=== PATIENT | female | born 1950 | race Caucasian/White ===

== ENCOUNTER 2021-07-14 04:52 | Emergency (ER) | payer MEDICARE ==
[~2021-07-14] VITALS: Ht 162.6 cm; Wt 90.7 kg
[~2021-07-14 04:52] MED LIST: ASPI325B; ATOR20 PO; ATOR40TA; Aspir 8181 MG PO; CEFD300 PO; CIPR500; CITA20 PO; CLOP75; CYCL10 PO; LISI5; METO50ER; METO50ER PO; PROACE100 PO; TAMS.4ER PO; ZESTRIL40 M1 PO
[2021-07-14 05:24] LABS: Source, Urine Clean Catch
[2021-07-14 05:36] LABS: BASOPHILS ABSOLUTE AUTO 0.05 K/mm3 (0.00-0.23); BASOPHILS PERCENT AUTO 1 % (0-2); EOSINOPHILS ABSOLUTE AUTO 0.17 K/mm3 (0.00-0.68); EOSINOPHILS PERCENT AUTO 2 % (0-6); Hematocrit 38.4 % (33.0-51.0); Hemoglobin 13.3 g/dL (11.5-16.0); IMMATURE GRAN ABSOLUTE AUTO 0.04 K/mm3 (0.00-0.10); IMMATURE GRAN PERCENT AUTO 0 % (0-1); LYMPHOCYTES ABSOLUTE AUTO 1.47 K/mm3 (0.84-5.20); LYMPHOCYTES PERCENT AUTO 14 % (21-46); MONOCYTES ABSOLUTE AUTO 0.53 K/mm3 (0.16-1.47); MONOCYTES PERCENT AUTO 5 % (4-13); Mean Corpuscular HGB 33.3 pg (26.0-34.0); Mean Corpuscular HGB Conc 34.6 g/dL (31.5-36.5); Mean Corpuscular Volume 96 fL (80-100); Mean Platelet Volume 9.4 fL (9.1-12.4); NEUTROPHILS ABSOLUTE AUTO 8.65 K/mm3 (1.96-9.15); NEUTROPHILS PERCENT AUTO 79 % (41-73); Platelet Count 237 K/mm3 (150-400); RDW Coefficient Variation 11.8 % (11.7-14.2); RDW Standard Deviation 41.8 fL (35.1-46.3); White Blood Cell Count 10.91 K/mm3 (4.00-11.30)
[2021-07-14 05:40] LABS: Bilirubin, Urine Neg (Neg); Blood, Urine 5+ (Neg); Glucose Qualitative, Urine Neg (Neg); Ketones, Urine 1+ (Neg); Leukocyte Esterase, Urine Neg (Neg); Nitrite, Urine Neg (Neg); Protein, Urine 1+ (Neg); Specific Gravity, Urine 1.015 (1.003-1.022); Urobilinogen, Urine NORM (Normal)
[2021-07-14 05:53] LABS: Appearance, Urine Hazy (Clear); Color, Urine Yellow (P-Yellow)
[2021-07-14 05:55] LABS: Bacteria Rare /hpf; Red Blood Cells, Urine TNTC /hpf (0-2); Squamous Epithelial Cells Rare /hpf (Few); White Blood Cells, Urine 0-2 /hpf (0-5)
[2021-07-14 06:32] LABS: Alanine Aminotransfer (ALT/SGP 30 U/L (12-78); Albumin, Blood 3.2 g/dL (3.4-5.0); Alk Phos 87 U/L (50-136); Anion Gap 9 mmol/L (6-16); Aspartate Aminotrans (AST/SGOT 18 U/L (12-37); Bilirubin, Total 0.4 mg/dL (0.1-1.0); Blood Urea Nitrogen 21 mg/dL (8-24); Bun/Creatinine Ratio 24.2 (12.0-20.0); CO2, Blood 26 mmol/L (21-32); Calcium, Blood 9.2 mg/dL (8.5-10.1); Chloride, Blood 108 mmol/L (98-108); Creatinine, Blood 0.87 mg/dL (0.40-1.00); Globulin, Blood 3.2 g/dL (2.2-4.0); Glomerular Filtration Rate >60 (60-); Glucose, Blood 159 mg/dL (70-99); Potassium, Blood 3.8 mmol/L (3.5-5.5); Sodium, Blood 143 mmol/L (136-145); Total Protein, Blood 6.4 g/dL (6.4-8.2)
[2021-07-14] MEDS ORDERED: ONDA4ODT MM (07:59)
[2021-07-14] MEDS ORDERED: Roxicodone5 MG PO (08:11)
== END 2021-07-14 08:30 | disposition home or self-care (01) ==
LOC: ER 04:52
PROVIDERS: Student in an Organized Health Care Education/Training Program
DX: N13.2 Hydronephrosis with renal and ureteral calculous obstruction (principal); R74.8 Abnormal levels of other serum enzymes; Z88.0 Allergy status to penicillin; Z88.5 Allergy status to narcotic agent; Z79.899 Other long term (current) drug therapy; Z79.82 Long term (current) use of aspirin
CPT/HCPCS: 36415; 76770; 80053; 81001; 83690; 85025; 96374; 96375; 99284-25; A9270; J1885; J2405

== ENCOUNTER → 2022-09-23 | Outpatient (CLI) | payer MEDICARE ==
[~2022-09-23] MED LIST changes: +ONDA4ODT MM; +Roxicodone5 MG PO
== END | disposition home or self-care (01) ==
LOC: LAB 08:21 → LAB SHORT 08:21
DX: D48.5 Neoplasm of uncertain behavior of skin (principal)
CPT/HCPCS: 88304

== ENCOUNTER 2022-11-03 23:24 | Inpatient (IN) | payer MEDICARE ==
[~2022-11-03] VITALS: Ht 165.1 cm; Wt 87.7 kg
[2022-11-03 23:59] LABS: BASOPHILS ABSOLUTE AUTO 0.11 K/mm3 (0.00-0.23); BASOPHILS PERCENT AUTO 1 % (0-2); EOSINOPHILS ABSOLUTE AUTO 0.13 K/mm3 (0.00-0.68); EOSINOPHILS PERCENT AUTO 1 % (0-6); Hematocrit 43.3 % (33.0-51.0); Hemoglobin 14.9 g/dL (11.5-16.0); IMMATURE GRAN ABSOLUTE AUTO 0.12 K/mm3 (0.00-0.10); IMMATURE GRAN PERCENT AUTO 1 % (0-1); LYMPHOCYTES ABSOLUTE AUTO 2.24 K/mm3 (0.84-5.20); LYMPHOCYTES PERCENT AUTO 10 % (21-46); MONOCYTES ABSOLUTE AUTO 1.33 K/mm3 (0.16-1.47); MONOCYTES PERCENT AUTO 6 % (4-13); Mean Corpuscular HGB 33.1 pg (26.0-34.0); Mean Corpuscular HGB Conc 34.4 g/dL (31.5-36.5); Mean Corpuscular Volume 96 fL (80-100); Mean Platelet Volume 9.2 fL (9.1-12.4); NEUTROPHILS ABSOLUTE AUTO 19.32 K/mm3 (1.96-9.15); NEUTROPHILS PERCENT AUTO 83 % (41-73); Platelet Count 227 K/mm3 (150-400); RDW Coefficient Variation 12.3 % (11.7-14.2); RDW Standard Deviation 43.8 fL (35.1-46.3); White Blood Cell Count 23.25 K/mm3 (4.00-11.30)
[2022-11-04 00:34] LABS: Alanine Aminotransfer (ALT/SGP 30 U/L (12-78); Albumin, Blood 3.5 g/dL (3.4-5.0); Albumin/Globulin Ratio 0.9 (0.8-1.8); Alk Phos 78 U/L (50-136); Anion Gap 7 mmol/L (6-16); Aspartate Aminotrans (AST/SGOT 24 U/L (12-37); Bilirubin, Total 0.5 mg/dL (0.1-1.0); Blood Urea Nitrogen 28 mg/dL (8-24); Bun/Creatinine Ratio 31.9 (12.0-20.0); CO2, Blood 28 mmol/L (21-32); Calcium, Blood 9.2 mg/dL (8.5-10.1); Chloride, Blood 106 mmol/L (98-108); Creatinine, Blood 0.88 mg/dL (0.40-1.00); Globulin, Blood 3.8 g/dL (2.2-4.0); Glomerular Filtration Rate 70 (60-); Glucose, Blood 279 mg/dL (70-99); Sodium, Blood 141 mmol/L (136-145); Total Protein, Blood 7.3 g/dL (6.4-8.2)
[2022-11-04 00:56] LABS: Influenza A, PCR NEGATIVE (NEGATIVE); Influenza B, PCR NEGATIVE (NEGATIVE); Resp Syncytial Virus, PCR NEGATIVE (NEGATIVE); SARS-Cov-2 (COVID-19) PCR, MMC NEGATIVE (NEGATIVE)
[2022-11-04 03:09] LABS: Lactate Dehydrogenase (Ld),Bld 320 U/L (100-240)
[2022-11-04 05:17] LABS: BASOPHILS ABSOLUTE AUTO 0.04 K/mm3 (0.00-0.23); BASOPHILS PERCENT AUTO 0 % (0-2); EOSINOPHILS ABSOLUTE AUTO 0.01 K/mm3 (0.00-0.68); EOSINOPHILS PERCENT AUTO 0 % (0-6); Hematocrit 45.1 % (33.0-51.0); Hemoglobin 15.3 g/dL (11.5-16.0); IMMATURE GRAN ABSOLUTE AUTO 0.05 K/mm3 (0.00-0.10); IMMATURE GRAN PERCENT AUTO 0 % (0-1); LYMPHOCYTES ABSOLUTE AUTO 0.64 K/mm3 (0.84-5.20); LYMPHOCYTES PERCENT AUTO 4 % (21-46); MONOCYTES ABSOLUTE AUTO 0.67 K/mm3 (0.16-1.47); MONOCYTES PERCENT AUTO 4 % (4-13); Mean Corpuscular HGB 32.9 pg (26.0-34.0); Mean Corpuscular HGB Conc 33.9 g/dL (31.5-36.5); Mean Corpuscular Volume 97 fL (80-100); Mean Platelet Volume 8.8 fL (9.1-12.4); NEUTROPHILS ABSOLUTE AUTO 15.62 K/mm3 (1.96-9.15); NEUTROPHILS PERCENT AUTO 92 % (41-73); Platelet Count 180 K/mm3 (150-400); RDW Coefficient Variation 12.4 % (11.7-14.2); RDW Standard Deviation 44.2 fL (35.1-46.3); Red Blood Cell Count 4.65 M/mm3 (3.80-5.20); White Blood Cell Count 17.03 K/mm3 (4.00-11.30)
[2022-11-04 05:40] LABS: Albumin, Blood 3.2 g/dL (3.4-5.0); Bilirubin, Total 0.5 mg/dL (0.1-1.0); Bun/Creatinine Ratio 30.2 (12.0-20.0); Calcium, Blood 8.6 mg/dL (8.5-10.1); Creatinine, Blood 0.83 mg/dL (0.40-1.00); Globulin, Blood 3.3 g/dL (2.2-4.0); Potassium, Blood 2.9 mmol/L (3.5-5.5); Total Protein, Blood 6.5 g/dL (6.4-8.2)
[2022-11-04 05:51] LABS: Cholesterol 147 mg/dL (50-200); Triglycerides 80 mg/dL (30-160)
--- NOTE | 2022-11-04 06:09 | NUR ---
PT ARRIVED FROM ED, PT PAINFUL AND N/V, PT MEDICATED FOR BOTH AND HAS BEEN SLEEPING. PT BP CONTINUES TO BE HIGH, DR BARKER.
--- NOTE | 2022-11-04 10:41 | NUR ---
MED. REC CALLED [facility] [place] AND REQUESTED A MEDICATION RECORD FOR PT. PROVIDED FAX NUMBER. CONTINUE POC.
[2022-11-04] MEDS ORDERED: Prozac20 MG PO (11:22)
[2022-11-04] MEDS ORDERED: IBUP600 PO (11:23)
[2022-11-04 14:33] LABS: Bun/Creatinine Ratio 30.2 (12.0-20.0); Calcium, Blood 8.7 mg/dL (8.5-10.1); Creatinine, Blood 0.8 mg/dL (0.40-1.00)
--- NOTE | 2022-11-04 18:24 | NUR ---
EVENING NOTE PT ALERT. SHE IS DENYING DISCOMFORT AT THIS TIME BUT SHE WILL GRAB AND RUB HER RUQ. SHE IS SIPPING ON SPRITE AND ICE. SHE IS BURPING AND SHE HAD FEELHER STOMACH ROLLING AND RUMBLING. NOT PASSING GAS. SHE IS REFUSING ZOFRAN. BP BETTER CONTROLLED. HYDRALAZINE GIVEN X3. SBA TO BSC. VOIDED X2. LR INFUSING AT 150 ML/HR. CONTINUE POC.
[2022-11-05 05:07] LABS: BASOPHILS ABSOLUTE AUTO 0.04 K/mm3 (0.00-0.23); BASOPHILS PERCENT AUTO 0 % (0-2); EOSINOPHILS PERCENT AUTO 0 % (0-6); Hematocrit 42.8 % (33.0-51.0); Hemoglobin 14.2 g/dL (11.5-16.0); IMMATURE GRAN ABSOLUTE AUTO 0.18 K/mm3 (0.00-0.10); IMMATURE GRAN PERCENT AUTO 1 % (0-1); LYMPHOCYTES ABSOLUTE AUTO 0.63 K/mm3 (0.84-5.20); LYMPHOCYTES PERCENT AUTO 3 % (21-46); MONOCYTES ABSOLUTE AUTO 1.22 K/mm3 (0.16-1.47); MONOCYTES PERCENT AUTO 5 % (4-13); Mean Corpuscular HGB 32.6 pg (26.0-34.0); Mean Corpuscular HGB Conc 33.2 g/dL (31.5-36.5); Mean Corpuscular Volume 98 fL (80-100); Mean Platelet Volume 9.4 fL (9.1-12.4); NEUTROPHILS ABSOLUTE AUTO 21.81 K/mm3 (1.96-9.15); NEUTROPHILS PERCENT AUTO 91 % (41-73); Platelet Count 160 K/mm3 (150-400); RDW Coefficient Variation 12.9 % (11.7-14.2); RDW Standard Deviation 46.5 fL (35.1-46.3); Red Blood Cell Count 4.35 M/mm3 (3.80-5.20); White Blood Cell Count 23.88 K/mm3 (4.00-11.30)
[2022-11-05 05:21] LABS: Albumin, Blood 2.8 g/dL (3.4-5.0); Albumin/Globulin Ratio 0.8 (0.8-1.8); Bilirubin, Total 0.7 mg/dL (0.1-1.0); Bun/Creatinine Ratio 33.7 (12.0-20.0); Calcium, Blood 8.4 mg/dL (8.5-10.1); Creatinine, Blood 0.92 mg/dL (0.40-1.00); Globulin, Blood 3.3 g/dL (2.2-4.0); Potassium, Blood 3.9 mmol/L (3.5-5.5); Total Protein, Blood 6.1 g/dL (6.4-8.2)
--- NOTE | 2022-11-05 05:23 | NUR ---
PATIENT IS ALERT AND ORIENTED X4, CALM AND COOPERATIVE WITH CARE. ABD PAIN AND N/V KEPT HER AWAKE FOR MOST OF THE NIGHT, TREATED PER MAR. HTN, AND TACHYCARDIC, AWARE. PATIENT WAS PLACED ON 2L NC SINCE SHE WAS DESATURATING WHILE AT REST. LR INFUSING AT 150, DRINKING FLUIDS. WILL CONT TO MONITOR.
--- NOTE | 2022-11-05 09:56 | NUR ---
LEFT UE HELPING PT GET UP TO USE THE BSC. NOTED THAT HER LEFT UE WAS UNABLE TO BEAR WEIGHT. ELBOW COLLAPSED. UPON STANDING HER LEDT ARM DANGLED FREE. SHE MADE NO ATTEMPT TO USE IT. HAD TO CUE HER ABOUT HER LEFT SIDE. ON RETURN TO BED SHE WAS WEAK WITH STANDING ON HER LEFT LEG. EYES SAMANTHA. WHEN ASKED TO RAISE BOTH HER ARMS HER LEFT ARM BARLEY LIFTED OFF THE BED. ASKED HER IF HER ARM FELT NORMAL? SHE STATED IT FEELS BETTER THAN LAST NIGHT. FEED CRUSHER OPERATOR WAS STRONG BUT ONLY AFTER CUEING HER TO SQUEEZE HER LEFT HAND. SHE IMMEDIATELY SQUEEZED HER RIGHT. CALLED DR OROSCO. RELAYED NEURO CHANGES. DR OROSCO HERE. CONTINUE POC.
--- NOTE | 2022-11-05 14:04 | NUR ---
NOTE PT RESTING QUIETLY. EYES CLOSED. RESP EVEN AND UNLABORED. 2L N/C. TELE SHOWS NSR AT 92 BPM. NO ECTOPY. PT HAS COMPLETED CT AND MRI OF THE ABD. SHE WAS PREMEDICATED FOR EACH WITH DILAUDID 0.5MG. HR DAUGHTER RAVEN HAS BEEN IN TO SEE HER TWICE TODAY. NPO. PT HAS NOT EVEN ASKED FOR ANYTHING ORAL. SHE APPEARS MUCH MORE COMFORTABLE. DENIED NAUSEA. LR INFUSING. POWER GLIDE PLACED LEFT UE. UP TO BSC X3. CONTINUE POC.
--- NOTE | 2022-11-05 18:05 | NUR ---
TRANSFER TO PCU [address] SCAN VIA [facility]. TO RETURN TO PCU 7. REPORT GIVEN TO RECEIVING NURSE DEBORAH RAMIREZ AND WALTER RN. PT BELONGINGS BROUGHT BY FAMILY. CONTINUE POC.
--- NOTE | 2022-11-05 19:26 | NUR ---
TRANSFER/ END OF SHIFT NOTE PT TRANSFERRED FROM MEDICAL FLOOR TO PCU7 AFTER HEAD CT. SINCE ARRIVING TO THE UNIT, PT HAS HAD A LARGE AMOUNT OF FAMILY AT BEDSIDE. PT HAS HAD SIGNIFICANT COMPLAINTS OF ABD PAIN. MEDICATED PER MAR. SOME NAUSEA, MEDS GIVEN. SOME URINE FREQUENCY COMPLAINTS, PT WAS ASSISTED TO COMMODE MULTIPLE TIMES. BLADDER SCANNED FOR 120 POST VOID. PT WAS VERY WEAK GETTING BACK TO BED, RECOMMEND PERIWICK OR BEDPAN FOR NOC SHIFT. DIET INCREASED TO ADVANCE TOLERATED. PT AND FAMILY ORIENTED TO ROOM AND CALL LIGHT SYSTEM. PT IS ABLE TO MAKE NEEDS KNOWN, CALL LIGHT IS WITHIN REACH.
[2022-11-06 03:09] LABS: Hematocrit 43.6 % (33.0-51.0); Hemoglobin 14.4 g/dL (11.5-16.0); Mean Corpuscular HGB 32.7 pg (26.0-34.0); Mean Corpuscular Volume 99 fL (80-100); Mean Platelet Volume 9.4 fL (9.1-12.4); Platelet Count 139 K/mm3 (150-400); RDW Coefficient Variation 13.4 % (11.7-14.2); RDW Standard Deviation 48.8 fL (35.1-46.3); Red Blood Cell Count 4.41 M/mm3 (3.80-5.20); White Blood Cell Count 22.04 K/mm3 (4.00-11.30)
[2022-11-06 03:25] LABS: Albumin, Blood 2.5 g/dL (3.4-5.0); Albumin/Globulin Ratio 0.8 (0.8-1.8); Bilirubin, Total 0.9 mg/dL (0.1-1.0); Bun/Creatinine Ratio 28.8 (12.0-20.0); Calcium, Blood 8.6 mg/dL (8.5-10.1); Creatinine, Blood 1.32 mg/dL (0.40-1.00); Globulin, Blood 3.1 g/dL (2.2-4.0); Potassium, Blood 4.2 mmol/L (3.5-5.5); Total Protein, Blood 5.6 g/dL (6.4-8.2)
[2022-11-06 03:28] LABS: BAND PERCENT MAN 10 % (0-8); BASOPHILS PERCENT MAN 0 % (0-2); EOSINOPHILS PERCENT MAN 0 % (0-6); LYMPHOCYTES ABSOLUTE MAN 0.22 K/mm3 (0.84-5.20); LYMPHOCYTES PERCENT MAN 1 % (21-46); MONOCYTES ABSOLUTE MAN 0.22 K/mm3 (0.16-1.47); MONOCYTES PERCENT MAN 1 % (4-13); NEUTROPHILS ABSOLUTE MAN 21.59 K/mm3 (1.96-9.15); SEG NEUTROPHILS PERCENT MAN 88 % (41-73); TOTAL CELLS COUNTED 100
--- NOTE | 2022-11-06 05:15 | NUR ---
Assumed care of pt at 1900. A/Ox4, cooperative with care and calls appropriately. C/o R middle quadrant abdominal pain, pressure right above pubic bone, and low back pain. Medicated per emar with minimal relief, off and on writhing in pain. Weakness noted in L side, unchanged during this shift. R hand nicu rn 5/5, L hand nicu rn 4/5, R leg 5/5, L leg 4/5. Some delay with movement after command given noted. Smile equal, able to move tongue to both sides. Maintains over 92% on 2L NC, LS clear upper and clear/dim at bases b/l. Nonproductive cough noted. Junctional rhythm on tele 120-130's. Denies CP/pressure. SBP 140-170 this shift. Strong +2 pulses t/o. Moderate abdominal distention, very tender to touch/palpation. Nausea, no vomiting but patient more c/o stomach acid feeling. Patient has purewick in place, but has been unable to void. Bladder scan hows 240ml in bladder. Given imaging results with a calculi, order obtained for Bladder/renal US. Will report to marissa RAMIREZ.
[2022-11-06 08:31] LABS: Source, Urine Foley catheter
[2022-11-06 08:35] LABS: Appearance, Urine Clear (Clear); Bilirubin, Urine Neg (Neg); Blood, Urine 3+ (Neg); Color, Urine Yellow (P-Yellow); Glucose Qualitative, Urine Neg (Neg); Ketones, Urine Neg (Neg); Leukocyte Esterase, Urine Neg (Neg); Nitrite, Urine Neg (Neg); Protein, Urine 2+ (Neg); Specific Gravity, Urine 1.015 (1.003-1.022); Urobilinogen, Urine NORM (Normal)
[2022-11-06 08:44] LABS: Amorphous Mod (0-Heavy)
[2022-11-06 08:45] LABS: Red Blood Cells, Urine 0-2 /hpf (0-2); White Blood Cells, Urine 0-2 /hpf (0-5)
[2022-11-06 08:46] LABS: Bacteria Rare /hpf; Squamous Epithelial Cells Rare /hpf (Few)
[2022-11-06 08:47] LABS: Hyaline Casts 0-2 /lpf (0-2); Mucus Light (0-Heavy)
--- NOTE | 2022-11-06 12:08 | NUR ---
AM NOTE: PATIENT WAKES TO NAME AND ABLE TO ANSWER MOST ORIENTING QUESTIONS. ALERT AND ORIENTED X3. UPON AM ASSESSMENT PATIENT NOT LOOKING TO THE LEFT OR USING LEFT ARM/LEG. SENSATION PRESENT ON LEFT SIDE BUT PATIENT LACKS EXTREMITY MOVEMENT. NO FACIAL DROOP NOTED. RIGHT PUPIL LARGER AND FIXED COMPARED TO LEFT THIS AM. DR. OROSCO PRESENT IN ROOM UPON ASSESSMENT. PATIENT ABLE TO FOLLOW ALL COMMANDS WITH RIGHT SIDE. BEDREST AT THIS TIME. COMPLAINS OF 10/10 RIGHT LOWER QUADRANT ABDOMINAL PAIN THIS MORNING. MEDICATED PER EMAR WITH GOOD RELIEF. LARGE INCONTINENT VOID IN ATTENDS THIS AM. [facility]MAN CATH PLACED FOR STRICT I/O. RENAL ULTRASOUND COMPLETED LAST NIGHT. ON 2L NASAL CANNULA SATING MID 90'S. LUNGS SOUNDING COARSE WITH FINE EXPIRATORY WHEEZZE. OCCASIONAL COUGH. PATIENT STATES SHE IS HAVING ACID REFLUX SYMPTOMS AND IS GASSY. SHALLOW BREATHS. RR 18-24. TELE SHOWING SINUS TACH WITH HR 120'S. BP STABLE. NO SIGNS OF EDEMA AT THIS TIME. LOVENOX DISCONTINUED. PATIENT SLEEPY AND UNABLE TO TAKE MORNING MEDS. PO MEDS HELD. DENIES CHEST PAIN/PRESSURE/PALPITATIONS. PPP. LEFT HAND WARMER COMPARED TO RIGHT. BLOOD PRESSURES BEING TAKEN ON LEFT FA. 1L LR INFUSED THIS AM FOLLOWED BY LR AT 250 ML/HR. POWERGLIDE TO LEFT UPPER ARM WNL. FAMILY AT BEDSIDE AND DR. TAVERAS AND DR. OROSCO IN TO DISCUSS PLAN OF CARE. FAMILY AND PATIENT DISCUSSING CODE STATUS. NEW ORDERS FOR DNR. ORDERS IN PLACE. PATIENT NOT EATING BUT TAKING SMALL SIPS OF WATER. Q6 BLOOD SUGARS. CALL LIGHT IN REACH. CT OF HEAD COMPLETED. UNABLE TO OBTAIN MRI DUE TO PATIENT HEAD MOVEMENT, DR. TAVERAS AWARE. 1200 LABS PENDING.
[2022-11-06 12:12] LABS: Calcium, Blood 8.2 mg/dL (8.5-10.1); Creatinine, Blood 1.73 mg/dL (0.40-1.00); Potassium, Blood 4.6 mmol/L (3.5-5.5)
--- NOTE | 2022-11-06 13:04 | NUR ---
[address] TAVERAS CALLED THIS RN. RENAL ULTRASOUND, MRI OF ABDOMIN AND CT OF ABDOMIN PUSHED TO [facility]. 1200 NEURO UNCHANGED FROM THIS AM. PATIENT STILL NOT USING LEFT SIDE. NO FACIAL DROOP NOTED. STRONG HAND GLOVE CLEANER TO RIGHT HAND AND ABLE TO FOLLOW ALL COMMANDS ON RIGHT SIDE. ABLE TO MAKE NEEDS KNOWN VIA VERBALLY. LEFT AND RIGHT PUPILS EQUAL AND SLUGGISH.
--- NOTE | 2022-11-06 13:58 | NUR ---
ECHO BEING DONE AT THIS TIME
--- NOTE | 2022-11-06 15:50 | NUR ---
PATIENT BLOOD PRESSURE ON SOFT SIDE. DR. OROSCO IN ROOM TO ASSESS PATIENT. THIS RN TO MONITOR BP AND UPDATE DR. OROSCO NEEDED. PATIENT MEDICATED NEEDED PER EMAR AND ABLE TO MANAGE PAIN AND NAUSEA. MINIMAL URINE OUTPUT. LR CONTINUES AT 250 ML/HR. NO NEW EDEMA. LUNGS SOUNDS UNCHANGED FROM THIS AM WITH FINE EXPIRATORY WHEEZES. BLADDER SCAN DONE SHOWING 30 ML. ECHO COMPLETED. PATIENT SLEEPING AT THIS TIME. Q2 TURNS AND NEEDED. REMAINS ON 2L NASAL CANNULA. HR REMAINS TACHY 120'S.
--- NOTE | 2022-11-06 16:10 | NUR ---
THIS RN DISCUSSED MINIMAL URINE OUTPUT WIT DR. TAVERAS. CONTINUE WITH FLUIDS. NO NEW ORDERS.
--- NOTE | 2022-11-06 16:50 | NUR ---
DR. OROSCO CALLED TO UPDATE ON BP OF 88/60(70). PATIENT SLEEPING POST DILAUDID ADMINISTRATION. BP 102/61 AT TIME OF 0.5MG IV DILAUDID WITH 10/10 PAIN. NO NEW ORDERS. PLAN TO CONTINUE TO MONITOR.
[2022-11-06 18:15] LABS: Bun/Creatinine Ratio 22.6 (12.0-20.0); Calcium, Blood 8.3 mg/dL (8.5-10.1); Creatinine, Blood 2.21 mg/dL (0.40-1.00)
--- NOTE | 2022-11-06 18:21 | NUR ---
UPON NEURO CHECKS THIS RN NOTICED PATIENT RIGHT PUPIL LARGER AND NONREACTIVE. NO OTHER CHANGES TO NEURO STATUS. DR. TAVERAS CALLED AND UPDATED ON PUPILS/NEURO ASSESMENT, CURRENT VITALS AND PENDING 1800 LABS. NO NEW ORDERS. LR CONTINUES TO INFUSE AT 250 ML/HR. PATIENT REMAINS ON 2L NASAL CANNULA. TELE SHOWING ST WITH HR 120'S. BP REMAINS SOFT SBP 90-107. INTERMIT ABDOMINAL PAIN, MEDICATED WITH DILAUDID THROUGHOUT SHIFT WITH RELIEF. GOODMAN CATH CONTINUE TO DRAIN MINIMAL OUTPUT. 200 ML DRAINED TOTAL THIS SHIFT. DR. TAVERAS AWARE. BLOOD SUGARS REMAINS STABLE. LUNGS CONTINUE TO SOUND COARSE WITH INTERMIT EXP WHEEZE. Q2 TURNS AND NEEDED. FAMILY AT BEDSIDE AND UPDATED THROUGHOUT THE DAY. PENDING TRANSFER TO [place].
--- NOTE | 2022-11-06 19:21 | NUR ---
PATIENT HR AND OXYGENATION SUDDENLY DROPPING. PATIENT BECAME UNRESPONSIVE. THIS RN, PRODUCTION ASSEMBLY OPERATOR AND RESPIRATORY TO BEDSIDE. [facility], DR. GARCÍA CALLED BY OTHER RN. NONREBREATHER PLACED AND PATIENT BEGAN TO GUPPY BREATH. COFFEE GROUND EMISIS CONTINUALLY SUCTIONED OUT OF PATIENT MOUTH. PATIENT DNR. DR. GARCÍA TO BEDSIDE. TIME OF 1857. DAUGHTER RAVEN AT BEDSIDE. DAUGHTER DENIED NEED FOR STEPH. THIS RN AND PRODUCTION ASSEMBLY OPERATOR IN ROOM TO PROVIDE SUPPORT TO DAUGHTER. OTHER FAMILY CALLED AND NOTIFIED, RAVEN AND FAMILY AT BEDSIDE WITH PATIENT AT THIS TIME.
== END 2022-11-06 22:03 | DRG 438 ==
LOC: ER 23:24 → MEDS 11-04 03:04 → PCU 11-05 16:48
PROVIDERS: Physician Assistant; Student in an Organized Health Care Education/Training Program; ADMIT Student in an Organized Health Care Education/Training Program
PROC: 0T9B70Z Drainage of Bladder with Drainage Device, Via Natural or Artificial Opening (ICD-10-PCS; principal; 2022-11-04)
DX: K85.90 Acute pancreatitis without necrosis or infection, unspecified (principal); I63.39 Cerebral infarction due to thrombosis of other cerebral artery; R65.11 Systemic inflammatory response syndrome (SIRS) of non-infectious origin with acute organ dysfunction; N17.9 Acute kidney failure, unspecified; N13.2 Hydronephrosis with renal and ureteral calculous obstruction; G81.92 Hemiplegia, unspecified affecting left dominant side; I70.8 Atherosclerosis of other arteries; I25.10 Atherosclerotic heart disease of native coronary artery without angina pectoris; Z66 Do not resuscitate; K83.8 Other specified diseases of biliary tract; F32.A Depression, unspecified; I10 Essential (primary) hypertension; R73.9 Hyperglycemia, unspecified; E87.6 Hypokalemia; R09.02 Hypoxemia; E78.5 Hyperlipidemia, unspecified; Z20.822 Contact with and (suspected) exposure to COVID-19; R73.03 Prediabetes; R63.4 Abnormal weight loss; H54.7 Unspecified visual loss; Z88.0 Allergy status to penicillin; Z68.30 Body mass index [BMI] 30.0-30.9, adult; Z88.5 Allergy status to narcotic agent; Z79.899 Other long term (current) drug therapy; Z79.82 Long term (current) use of aspirin; Z79.02 Long term (current) use of antithrombotics/antiplatelets; Z79.811 Long term (current) use of aromatase inhibitors; Z79.2 Long term (current) use of antibiotics; Z79.891 Long term (current) use of opiate analgesic; Z90.49 Acquired absence of other specified parts of digestive tract; Z95.5 Presence of coronary angioplasty implant and graft
CPT/HCPCS: 0241U; 36415; 70450; 70496; 70498; 71045; 74177; 74181; 76770; 80048; 80053; 81001; 82465; 82947; 83615; 83690; 83735; 84478; 85025; 93005; 93010; 93306; 96361; 96374; 96375; 99285-25; A9270; C1751; C9113; J0360; J1170; J1650; J1885; J1956; J2405; J2765; J3010; J3480; J7030; J7050; J7120; Q9967